=== PATIENT | female | born 1935 ===

== ENCOUNTER → 2019-04-15 | Outpatient (CLI) | payer MEDICARE, OTHER ==
--- NOTE | 2019-04-17 07:29 | RAD ---
MR#: [id number] Date of Study: 04/15/2019 Ordering Physician: GISELL CHEUNG, Referring Physician: GISELL CHEUNG, Tech: CRYSTAL Whalen, RDMS, RVT APPROVED REPORT Patient Location: OUT-PATIENT Laterality:Bilateral Risk Factors Hypertension: Diabetes PAD Doppler Spectral Velocity Analysis Right Left pCCA 41/9 cm/spCCA 47/10 cm/s mCCA 46/11 cm/smCCA 50/10 cm/s dCCA 45/12 cm/sdCCA 48/11 cm/s ECA 45/ cm/sECA 44/ cm/s pICA 43/10 cm/spICA 44/6 cm/s Za 65/19 cm/smICA 56/18 cm/s dICA 71/20 cm/sdICA 80/20 cm/s ICA/CCA 1.54ICA/CCA 1.70 Findings Grayscale images of the bilateral carotid vessels demonstrates mild diffuse irregularities. Normal ve locities are noted in the common carotid, internal carotid and external carotid vessels. Normal anteg rade vertebral velocities. No significant occlusive disease is identified. Critical Notification Critical Value: No <Conclusion> No significant carotid occlusive disease. Signed by : Gisell Cheung, Electronically Approved : 04/17/2019 07:28:28
--- NOTE | 2019-04-17 08:05 | RAD ---
MR#: [id number] Date of Study: 04/15/2019 Ordering Physician: GISELL CHEUNG, Referring Physician: GISELL CHEUNG, Tech: CRYSTAL Whalen, RDMS, RVT APPROVED REPORT Patient Location: OUT-PATIENT Indications PAD Risk Factors Hypertension Diabetes VELOCITY AND DOPPLER WAVEFORM ANALYSIS RIGHT cm/secWaveformSeverity LEFT cm/secWaveform Severity pCFA 114.2TriphasicpCFA 96.2Triphasic Prof Fem Art. 99.8Prof Fem Art. 137.9 Fem Art Prox. 99.8BiphasicFem Art Prox. 72.9Triphasic Fem Art Mid. 125.1BiphasicFem Art Mid. 63.4Triphasic Fem Art Dist. 78.8BiphasicFem Art Dist. 70.3Biphasic Pop Art(Fossa) 105.5BiphasicPop Art(AK) 62.0Biphasic JAVA MANAGER Dist. 45.2BiphasicPTA Dist. 39.9Biphasic Per Art Dist.54.1MonophasicPer Art Dist.54.9Monophasic ROSELIA Dist. 27.2MonophasicATA Dist. 19.8Biphasic DPA 64MonophasicDPA 68Monophasic Findings Grayscale images of the bilateral lower extremity arterial vessels reveal moderate diffuse plaque The right lower extremity has normal velocities from the common femoral artery to the popliteal arter y. Below the knees there are monophasic waveforms suggestive of diffuse disease without any focal obs truction and three-vessel patency. On the left there are normal velocities from the common femoral to the popliteal segment. Below the k nee again there are monophasic waveforms suggestive of diffuse disease without any focal obstruction noted and three-vessel runoff is evident. Critical Notification Critical Value: No <Conclusion> 1. Moderate diffuse below-knee disease without any focal high-grade above knee disease identified. Signed by : Gisell Cheung, Electronically Approved : 04/17/2019 08:04:49
== END | disposition home or self-care (01) ==
LOC: US 12:12
PROVIDERS: ATTEND Internal Medicine Cardiovascular Disease
DX: I70.293 Other atherosclerosis of native arteries of extremities, bilateral legs (principal); I10 Essential (primary) hypertension; E11.9 Type 2 diabetes mellitus without complications; I25.10 Atherosclerotic heart disease of native coronary artery without angina pectoris; I42.2 Other hypertrophic cardiomyopathy; E78.5 Hyperlipidemia, unspecified
CPT/HCPCS: 93880; 93925